=== PATIENT | male | born 1970 | race Caucasian/White ===

== ENCOUNTER → 2022-09-04 23:20 | Outpatient (CLI) | payer OTHER, SELFPAY ==
[2022-09-04 19:46] LABS: Basophils % 0.4 % (0.1-2.0); Eosinophils # 0.2 K/mm3 (0.0-0.4); Eosinophils % 1.8 % (0.1-12.0); Hematocrit 53.3 % (42.0-52.0); Hemoglobin 17.2 g/dL (14.1-18.0); Lymphocytes # 2.9 K/mm3 (0.7-4.5); Lymphocytes % 30.4 % (10-50); Mean Corpuscular HGB Conc 32.2 g/dL (31.8-35.4); Mean Corpuscular Hemoglobin 32.5 pg (27.0-31.2); Mean Corpuscular Volume 100.8 fl (80-94); Mean Platelet Volume 9.5 fl (7.4-10.4); Monocytes # 0.6 K/mm3 (0.1-1.0); Monocytes % 5.9 % (1.7-9.3); Neutrophils # 5.8 K/mm3 (1.8-7.8); Neutrophils % 61.5 % (37.0-80.0); Platelet Count 301 K/mm3 (142-424); Red Blood Count 5.29 M/mm3 (4.60-6.20); Red Cell Distribution Width 12.7 % (11.5-17.5); White Blood Count 9.4 K/mm3 (4.8-10.8)
[2022-09-04 20:04] LABS: Chloride 104 mmol/L (98-107); Sodium 141 mmol/L (136-145)
[2022-09-04 20:06] LABS: Alanine Aminotransferase 67 U/L (12-78); Blood Urea Nitrogen 17 mg/dl (9-20); Estimated Glomerular Filt Rate 103 ml/min (>60); GFR (African American) 124 ML/MIN (>60)
[2022-09-04 20:07] LABS: Albumin Level 4.8 g/dl (3.5-5.0); Albumin/Globulin Ratio 1.6 (1.1-1.8); Alkaline Phosphatase 92 U/L (38-126); Aspartate Amino Transferase 42 U/L (17-59); Bilirubin,Total 1.7 mg/dl (0.2-1.3); Calcium 9.9 mg/dl (8.4-10.2); Carbon Dioxide 27 mmol/L (22.0-30.0); Chol/HDL Ratio 4.3 (1-3.5); Cholesterol 256 mg/dl (140-200); Glucose 86 mg/dl (74-100); HDL Cholesterol 59 mg/dl (40-60); Total Protein,Serum 7.8 g/dl (6.3-8.2); Triglycerides 155 mg/dl (30-150); VLDL Cholesterol 31 mg/dL (0-40)
[2022-09-04 20:18] LABS: Direct LDL Cholesterol 146.98 mg/dL (100-129)
[2022-09-04 20:41] LABS: Thyroid Stimulating Hormone 2.31 uIU/mL (0.465-4.68)
[2022-09-04 21:24] LABS: Vitamin B12 512 pg/mL (239-931)
[2022-09-06 10:45] LABS: Testosterone,Total 304 ng/dL (264-916)
== END ==
PROVIDERS: PCP Family Medicine; Visit Provider Family Medicine
DX: R53.83 Other fatigue (principal); Z71.2 Person consulting for explanation of examination or test findings; Z79.899 Other long term (current) drug therapy
CPT/HCPCS: 80053; 80061; 82607; 84403; 84443; 85025

== ENCOUNTER → 2022-09-11 09:08 | Outpatient (CLI) | payer OTHER, SELFPAY ==
--- NOTE | 2022-09-11 09:09 | US_ITS ---
FINAL REPORT CLINICAL HISTORY: Elevated liver enzymes/Bilirubin COMPARISON: None FINDINGS: Sonographic images of the abdomen were obtained. Fatty infiltration of the liver is present. The gallbladder has an unremarkable appearance without evidence of gallstones. There is no evidence of biliary ductal dilatation. The portal vein measures 14 mm in diameter, which is borderline enlarged. The common hepatic duct measures 3 mm, which is within normal limits. Limited images of the pancreas are unremarkable. The spleen size is normal. The right kidney measures 11.3 cm in length. The left kidney measures 10.5 cm in length. There is normal renal echogenicity. There is no evidence of hydronephrosis. The aorta has an unremarkable appearance. Limited images of the inferior vena cava are unremarkable. IMPRESSION: Fatty infiltration of the liver. Portal vein 14 mm in diameter, borderline enlarged. Reviewed, Interpreted and Dictated by Toney Pierce III, MD Transcribed by Jeannie Izquierdo Authenticated and [facility]
== END ==
PROVIDERS: PCP Family Medicine; Visit Provider Family Medicine
DX: R74.8 Abnormal levels of other serum enzymes (principal)
CPT/HCPCS: 76700

== ENCOUNTER 2023-03-30 18:11 | Outpatient (CLI) | payer OTHER, SELFPAY ==
[2023-03-30 17:58] LABS: Basophils % 0.6 % (0.1-2.0); Eosinophils # 0.2 K/mm3 (0.0-0.4); Eosinophils % 2.4 % (0.1-12.0); Hematocrit 49.6 % (42.0-52.0); Hemoglobin 17.7 g/dL (14.1-18.0); Lymphocytes % 30.2 % (10-50); Mean Corpuscular HGB Conc 35.7 g/dL (31.8-35.4); Mean Corpuscular Volume 103.6 fl (80-94); Mean Platelet Volume 9.9 fl (7.4-10.4); Monocytes # 0.5 K/mm3 (0.1-1.0); Monocytes % 8.1 % (1.7-9.3); Neutrophils % 58.8 % (37.0-80.0); Platelet Count 296 K/mm3 (142-424); Red Blood Count 4.78 M/mm3 (4.60-6.20); Red Cell Distribution Width 12.6 % (11.5-17.5); White Blood Count 6.7 K/mm3 (4.8-10.8)
[2023-03-30 18:01] LABS: Chloride 107 mmol/L (98-107); Sodium 139 mmol/L (136-145)
[2023-03-30 18:02] LABS: Potassium 4.8 mmoL/L (3.5-5.1)
[2023-03-30 18:04] LABS: Alanine Aminotransferase 88 U/L (12-78); Albumin Level 4.5 g/dl (3.5-5.0); Albumin/Globulin Ratio 1.5 (1.1-1.8); Alkaline Phosphatase 96 U/L (38-126); Anion Gap 10.8 mEq/L (5-15); Aspartate Amino Transferase 49 U/L (17-59); Bilirubin,Total 1.1 mg/dl (0.2-1.3); Blood Urea Nitrogen 14 mg/dl (9-20); Calcium 9.4 mg/dl (8.4-10.2); Carbon Dioxide 26 mmol/L (22.0-30.0); Cholesterol 239 mg/dl (140-200); Estimated Glomerular Filt Rate 119 ml/min (>60); GFR (African American) 144 ML/MIN (>60); Glucose 116 mg/dl (74-100); Total Protein,Serum 7.5 g/dl (6.3-8.2); Triglycerides 92 mg/dl (30-150); VLDL Cholesterol 18 mg/dL (0-40)
[2023-03-30 18:05] LABS: Chol/HDL Ratio 4.4 (1-3.5); HDL Cholesterol 54 mg/dl (40-60)
[2023-03-30 18:34] LABS: Prostate Specific Ag Screen 1.7 ng/ml (0.0-4.0)
[2023-03-30 18:43] LABS: Amphetamine/Metha Screen,Urine Negative ng/ml (<1000)
[2023-03-30 18:44] LABS: Benzodiazepines Screen,Urine Negative ng/ml (<200); Cannabinoid Screen,Urine Negative ng/ml (<50)
[2023-03-30 18:45] LABS: Cocaine Screen,Urine Negative ng/ml (<300)
[2023-03-30 18:47] LABS: Phencyclidine Screen,Urine Negative ng/ml (<25)
[2023-03-30 18:48] LABS: Methadone Screen,Urine Negative ng/ml (<300)
[2023-03-30 18:53] LABS: Vitamin B12 275 pg/mL (239-931)
[2023-03-30 18:56] LABS: Opiate Screen,Urine Negative ng/ml (<300)
[2023-03-30 18:59] LABS: Barbiturates Screen,Urine Negative ng/ml (<200)
[2023-03-30 19:15] LABS: Folate 9.82 ng/mL
== END 2023-03-30 23:59 ==
LOC: LAB.DROPOF 18:12
PROVIDERS: Visit Provider Family Medicine
DX: Z79.899 Other long term (current) drug therapy (principal); F10.11 Alcohol abuse, in remission; F41.9 Anxiety disorder, unspecified; E66.9 Obesity, unspecified; Z68.30 Body mass index [BMI] 30.0-30.9, adult; Z12.5 Encounter for screening for malignant neoplasm of prostate
CPT/HCPCS: 80053; 80061; 80307; 82607; 82746; 85025; G0103